=== PATIENT | male | born 1980 | race Two or more races ===

== ENCOUNTER 2019-05-06 05:35 | Emergency (ER) | payer SELFPAY ==
[~2019-05-06] VITALS: Ht 170.2 cm; Wt 79.8 kg
[2019-05-06 05:35] VITALS: BP 146/73
--- NOTE | 2019-05-06 05:45 | NUR ---
Pt being uncooperative with staff. Pt being disrespectful and cursing. Security at bedside.
--- NOTE | 2019-05-06 05:55 | NUR ---
Patient no longer wishes to be seen by Dr. Malachi noriega from facility. Dr. Mayra whaley.
== END 2019-05-06 05:50 | disposition left against medical advice (07) ==
LOC: ER 05:35
DX: M79.672 Pain in left foot (principal); Z53.21 Procedure and treatment not carried out due to patient leaving prior to being seen by health care provider